=== PATIENT | female | born 1955 | race Caucasian/White ===

== ENCOUNTER 2018-04-14 18:11 | Emergency (ER) | payer OTHER ==
[2018-04-14 19:37] LABS: ABS Basophils 0 10^3/ul (0-0.2); ABS Eosinophils 0 10^3/ul (0-0.6); ABS Lymphocytes 0.4 10^3/ul (1.0-4.8); ABS Monocytes 0.1 10^3/ul (0-0.8); ABS Neutrophils 6.5 10^3/ul (1.5-7.7); ABS Nucleated RBC 0 10^3/ul; Eosinophil % 0.7 % (0-6); Hematocrit 41 % (35-47); Hemoglobin 14.3 g/dl (12.0-16.0); Lymphocyte % 5.1 % (25-47); Mean Corpuscular HGB Conc 35 g/dl (31-36); Mean Corpuscular Hemoglobin 32 pg (27-31); Mean Corpuscular Volume 91 fL (80-97); Mean Platelet Volume 6.6 um3 (7.4-10.4); Nucleated Red Blood Cells % 0; Platelet Count 140 10^3/ul (150-450); Red Blood Count 4.53 10^6/ul (4.00-5.40); Red Cell Distribution Width 13 % (10.5-15); White Blood Count 7.1 10^3/ul (3.5-10.8)
[2018-04-14 19:55] LABS: EGFR Non-African American 75.3 (>60)
--- NOTE | 2018-04-14 20:43 | ED ---
Abdominal Pain/Female - HPI Summary HPI Summary: This is scrmarielenae, Slime Becerril, documenting for attending Dr. Fareed MD. A 62 y/o F presents to ED with c/o intermittent suprapubic abd pain onset earlier today. The pain is severe when it's present, last onset at approx 1630. Associated sx: fever, shaking onset 1700, diaphoresis, chills, loose stools. Denies CP, n/v, melena, urinary sx, respiratory sx. This pain is similar to prev episodes of abd pain. PMHx; diverticulitis. First colonoscopy at 52 y/o. Laparoscopic surgery for fallopian pain, otherwise denies abd surgeries. I, Dr. Guerrier, personally performed the services described in this documentation as scribed in my presence and it is both accurate and complete. - History of Current Complaint Chief Complaint: EDAbdPain Stated Complaint: ABD PAIN Time Seen by Provider: 04/14/18 20:35 Hx Obtained From: Patient, Family/Big Machine Consultant - daugther, present Onset/Duration: Sudden Onset, Lasting Hours, Still Present - last episode 1630 Timing: Intermittent Episode Lasting Severity Initially: Severe Severity Currently: None Pain Intensity: 10 - when occurring Pain Scale Used: 0-10 Numeric Location: Suprapubic Associated Signs and Symptoms: Positive: Diaphoresis, Fever, Other: - chills, loose stools, shaking. Negative: Chest Pain, Blood in Stool, Urinary Symptoms, Nausea, Vomiting Allergies/Adverse Reactions: Allergies Allergy/AdvReac Type Severity Reaction Status Date / Time Penicillins Allergy Intermediate Hives Verified 04/14/18 19:53 PMH/Surg Hx/FS Hx/Imm Hx Previously Healthy: No GI History: Reports: Hx Diverticulosis Sensory History: Denies: Hx Deafness Opthamlomology History: Denies: Hx Legally Blind - Cancer History Hx Chemotherapy: No Hx Radiation Therapy: No - Surgical History Surgery Procedure, Year, and Place: sinuses "flushed"; 1993; wisdom teeth Infectious Disease History: No Infectious Disease History: Denies: Hx Clostridium Difficile, Hx Hepatitis, Hx Human Immunodeficiency Virus (HIV), Hx of Known/Suspected MRSA, Hx Shingles, Hx Tuberculosis, Hx Known/ Suspected VRE, Hx Known/Suspected VRSA, History Other Infectious Disease, Traveled Outside the [place] in Last 30 Days - Family History Known Family History: Negative: Other - negative for breast cancer - Social History Occupation: Unemployed Lives: With Family Alcohol Use: Weekly Substance Use Type: Reports: None Smoking Status (MU): Former Smoker Review of Systems Positive: Fever, Chills, Skin Diaphoresis, Other - shaking Respiratory: Negative Gastrointestinal: Negative - melena Positive: Abdominal Pain - suprapubic, Other - loose stools. Negative: Vomiting , Nausea Positive: no symptoms reported All Other Systems Reviewed And Are Negative: Yes Physical Exam - Summary Physical Exam Summary: Appearance: Well-appearing, obese, lying in bed comfortably Skin: Warm, dry, no obvious rash Eyes: sclera anicteric, no conjunctival pallor ENT: mucous membranes moist, pharynx appears normal Neck: Supple, nontender Respiratory: Clear to auscultation, no signs of respiratory distress Cardiovascular: Normal S1, S2. No murmurs. Normal distal pulses in tibial and radial bilaterally. Abdomen: Soft, nontender, normal active bowel sounds present Musculoskeletal: Normal, Strength/ROM Intact Neurological: A&Ox3, awake and alert, mentation is normal, speech is fluent and appropriate Psychiatric: affect is normal, does not appear anxious or depressed Triage Information Reviewed: Yes Vital Signs On Initial Exam: Initial Vitals Temp Pulse Resp BP Pulse Ox 101.6 F 137 20 190/91 97 04/14/18 18:26 04/14/18 18:26 04/14/18 18:26 04/14/18 18:26 04/14/18 18:26 Vital Signs Reviewed: Yes Diagnostics - Vital Signs Vital Signs Temp Pulse Resp BP Pulse Ox 04/14/18 18:26 101.6 F 137 20 190/91 97 - Laboratory Lab Results: Lab Results 04/14/18 04/14/18 04/14/18 Range/Units 19:28 19:28 19:28 WBC 7.1 (3.5-10.8) 10^3/ul RBC 4.53 (4.00-5.40) 10^6/ul Hgb 14.3 (12.0-16.0) g/dl Hct 41 (35-47) % MCV 91 (80-97) fL MCH 32 H (27-31) pg MCHC 35 (31-36) g/dl RDW 13 (10.5-15) % Plt Count 140 L (150-450) 10^3/ul MPV 6.6 L (7.4-10.4) um3 Neut % (Auto) 92.6 H (38-83) % Lymph % (Auto) 5.1 L (25-47) % [place] % (Auto) 1.4 (0-7) % Eos % (Auto) 0.7 (0-6) % Baso % (Auto) 0.2 (0-2) % Absolute Neuts (auto) 6.5 (1.5-7.7) 10^3/ul Absolute Lymphs (auto) 0.4 L (1.0-4.8) 10^3/ul Absolute Monos (auto) 0.1 (0-0.8) 10^3/ul Absolute Eos (auto) 0 (0-0.6) 10^3/ul Absolute Basos (auto) 0 (0-0.2) 10^3/ul Absolute Nucleated RBC 0 10^3/ul Nucleated RBC % 0 Sodium 136 (135-145) mmol/L Potassium 4.0 (3.5-5.0) mmol/L Chloride 101 (101-111) mmol/L Carbon Dioxide 25 (22-32) mmol/L Anion Gap 10 (2-11) mmol/L BUN 9 (6-24) mg/dL Creatinine 0.78 (0.51-0.95) mg/dL Est GFR ( Amer) 91.2 (>60) Est GFR (Non-Af Amer) 75.3 (>60) BUN/Creatinine Ratio 11.5 (8-20) Glucose 109 H (70-100) mg/dL Lactic Acid 2.3 H* (0.5-2.0) mmol/L Calcium 9.4 (8.6-10.3) mg/dL Total Bilirubin 1.30 H (0.2-1.0) mg/dL AST 28 (13-39) U/L ALT 25 (7-52) U/L Alkaline Phosphatase 40 (34-104) U/L C-Reactive Protein 18.82 H (<8.01) mg/L Total Protein 6.9 (6.4-8.9) g/dL Albumin 4.0 (3.2-5.2) g/dL Globulin 2.9 (2-4) g/dL Albumin/Globulin Ratio 1.4 (1-3) Lipase 28 (11.0-82.0) U/L Result Diagrams: 04/14/18 19:28 04/14/18 19:28 Lab Statement: Any lab studies that have been ordered have been reviewed, and results considered in the medical decision making process. - CT A/P CT Interpretation: Positive (See Comments) - IMPRESSION: 1. Colonic diverticulosis with mild diverticulitis of a segment mid to distal sigmoid which passes through the cul-de-sac low in the pelvis. No pericolonic abscess or perforation. 2. Fatty infilatration of the liver. ED physician has reviwed this radiology report. CT Interpretation Completed By: Radiologist Re-Evaluation - Re-Evaluation 1 Re-Evaluation Time: 00:03 Comment: Discussing results with pt. Abdominal Pain Fem Course/Dx - Diagnoses Differential Diagnosis: Positive: Appendicitis, Irritable Bowel Syndrome, Urinary Tract Infection Provider Diagnoses: Sigmoid diverticulitis Discharge - Sign-Out/Discharge Documenting (check all that apply): Patient Departure - DC - Discharge Plan Condition: Good Disposition: HOME Prescriptions: Amoxicillin/Clavulanate TAB* [Augmentin TAB 875*] 875 mg PO BID #20 tab Patient Education Materials: Diverticulitis (ED) Referrals: Felipe Joyner MD [Primary Care Provider] - - Billing Disposition and Condition Condition: GOOD Disposition: Home
[2018-04-14] MEDS ORDERED: Iohexol 300* (CONTRAST) 10 ML SDV IV ONE (22:43)
[2018-04-14 22:51] LABS: Urine Appearance Clear; Urine Blood Negative (Negative); Urine Color Straw; Urine Ketones Negative (Negative); Urine Protein Negative (Negative); Urine Specific Gravity 1.002 (1.010-1.030); Urine Urobilinogen Negative (Negative)
[2018-04-15 00:59] VITALS: BP 146/74
--- NOTE | 2018-04-15 07:39 | RAD ---
INDICATION: Lower abdominal pain chills, history of diverticulitis. COMPARISON: There are no prior studies available for comparison. TECHNIQUE: A CT scan of the abdomen and pelvis was performed with intravenous and with oral contrast following intravenous injection of 150 ml of Omnipaque 300 nonionic contrast. Contiguous axial sections were obtained from the lung bases through the symphysis pubis. Images were reconstructed in the coronal and sagittal planes. FINDINGS: The lung bases are clear. No pleural effusion is present. The liver is mildly enlarged and decreased in attenuation consistent with fatty infiltration. No significant focal abnormality is seen. No calcified gallstones are noted. The spleen and pancreas appear to be within normal limits. The kidneys and adrenal glands are normal in size. No hydronephrosis is seen. No significant focal renal abnormality is seen. The abdominal aorta is tortuous with mild calcific plaque and homogeneous contrast opacification. No aneurysm is seen. No significant enlarged retroperitoneal lymph nodes are seen. The stomach, small and large bowel appear nondistended. The appendix is within normal limits. There is mild to moderate grade sigmoid diverticulosis with focal circumferential wall thickening in the distal sigmoid colon with interstitial stranding in the adjacent mesenteric fat. These findings are nonspecific although would be most consistent with diverticulitis. No abscess is seen. There is a small periumbilical hernia containing fat. There is a small amount of free intraperitoneal fluid in the dependent pelvis. No free intraperitoneal air is seen. The uterus is anteverted and normal in size. No significant focal osseous abnormality is seen. IMPRESSION: 1. THERE IS THICKENING OF THE WALL OF THE DISTAL SIGMOID COLON WITH STRANDING IN THE ADJACENT FAT. THESE FINDINGS ARE NONSPECIFIC ALTHOUGH MOST CONSISTENT WITH DIVERTICULITIS. RECOMMEND CLINICAL CORRELATION AND FOLLOW-UP. NO ABSCESS IS SEEN. 2. MILD HEPATOMEGALY AND HEPATIC STEATOSIS.
--- NOTE | 2018-04-15 09:24 | ED ---
Progress - Progress Note Progress Note: Patient was diagnosed with acute diverticulitis. The patient was given Augmentin however the patient is allergic to penicillin. Therefore change the medications to ciprofloxacin 500 mg twice a day for 10 days and Flagyl 500 mg 3 times a day for 10 days. Re-Evaluation - Re-Evaluation 1 Re-Evaluation Time: 00:03 Comment: Discussing results with pt. Course/Dx - Diagnoses Provider Diagnoses: Sigmoid diverticulitis Discharge - Sign-Out/Discharge Documenting (check all that apply): Patient Departure - Discharge Plan Condition: Good Disposition: HOME Prescriptions: Amoxicillin/Clavulanate TAB* [Augmentin TAB 875*] 875 mg PO BID #20 tab Patient Education Materials: Diverticulitis (ED) Referrals: Felipe Joyner MD [Primary Care Provider] - - Billing Disposition and Condition Condition: GOOD Disposition: Home
== END 2018-04-15 00:57 | disposition home or self-care (01) ==
LOC: ED 18:11
DX: K57.32 Diverticulitis of large intestine without perforation or abscess without bleeding (principal); R61 Generalized hyperhidrosis; R50.9 Fever, unspecified; R19.7 Diarrhea, unspecified; Z88.0 Allergy status to penicillin; Z87.891 Personal history of nicotine dependence
CPT/HCPCS: 36415; 74177; 80053; 81003; 83605; 83690; 85025; 86140; 87040; 99283; Q9967